=== PATIENT | male | born 1965 | race Caucasian/White ===

== ENCOUNTER 2023-06-26 22:48 | Observation (INO) ==
[2023-06-26 23:39] LABS: Albumin Globulin Ratio 1.9 (0.9-2); Albumin Level 4.5 gm/dl (3.4-5.0); Basophils # (auto) 0.07 K/uL (0.00-0.20); Calcium 9.2 mg/dl (8.6-10.3); Creatinine Clr Calc Pharmacy 113.9 ml/min; Eosinophils # (auto) 0.18 K/uL (0.00-0.50); Eosinophils % (auto) 2.7 %; Est GFR (African American) 97.1 ml/min; Est GFR (Non-African American) 83.8 ml/min; Globulin 2.4 gm/dl (2.5-4.0); Hematocrit (blood only) 43.6 % (42.0-52.0); Hemoglobin 15.3 g/dl (14.0-18.0); Immature Granulocytes # (auto) 0.02 K/uL (0.01-0.20); Immature Granulocytes % (auto) 0.3 %; Lymphocytes # (auto) 3.32 K/uL (1.20-3.40); Lymphocytes % (auto) 49.4 %; Magnesium 2.1 mg/dl (1.7-2.4); Mean Corpuscular Hemoglobin 29.8 pg (25.0-34.0); Mean Corpuscular Hgb Conc 35.1 g/dL (32.0-36.0); Mean Corpuscular Volume 84.8 fL (80.0-100.0); Mean Platelet Volume 10.2 fL (9.4-12.4); Monocytes # (auto) 0.44 K/uL (0.11-0.59); Monocytes % (auto) 6.5 %; Neutrophils # (auto) 2.69 K/uL (1.40-6.50); Neutrophils % (auto) 40.1 %; Platelet Count 230 K/uL (130-400); Potassium 3.6 mmol/L (3.5-5.1); RDW Standard Deviation 39.6 fL (36.4-46.3); Red Blood Count 5.14 M/uL (4.70-6.10); Total Protein 6.9 gm/dl (6.0-8.3); White Blood Count 6.72 K/ul (4.8-10.8)
[2023-06-26 23:46] LABS: Troponin I High Sensitivity 15.2 pg/ml (0-20)
[2023-06-26 23:46] LABS: iSTAT Hemoglobin 14.3 g/dl (14.0-18.0); iSTAT Ionized Calcium 1.17 mmol/l (1.12-1.32); iSTAT Potassium 3.4 mmol/L (3.3-5.0)
[2023-06-27] MEDS: OPTIRAY 350 500ml IV ONE (00:07)
--- NOTE | 2023-06-27 00:24 | Emergency Department Note ---
History of Present Illness General Chief complaint: Cardiac Assessment Stated complaint: CHEST PRESSURE Time Seen by Provider: 06/26/23 23:04 History of Present Illness This 57-year-old gentleman presents ER complaining of chest pain that goes up his chest for the past day. Nothing makes it better or worse. Patient states has been having constant chest discomfort and occasionally his heart will pauses and/or skip and feels like it goes up to the base of his neck today. He saw the family doctor today and an outpatient Holter monitor was ordered. He had a thyroid test done but no other blood work was done. No prior heart disease. He does not smoke. No leg pain or swelling. Patient denies exertional pain, trauma to the area, abdominal pain, flulike illness. He states he did raking the other day with no difficulties. No diaphoresis or nausea with the symptoms. Home Medications Medication Instructions Recorded Confirmed Type Pituitary Gland Support 1 tab PO DAILY 06/27/23 06/27/23 History Thyrotropin Support 2 tab PO DAILY 06/27/23 06/27/23 History cholecalciferol (vitamin D3) 50 100 mcg PO DAILY 06/27/23 06/27/23 History mcg (2,000 unit) capsule (Vitamin D3) Allergies Allergy/AdvReac Type Severity Reaction Status Date / Time Sulfa (Sulfonamide Allergy Unknown HAPPENED Verified 06/27/23 00:18 Antibiotics) A CHILD omeprazole AdvReac Intermediate HANDS Verified 06/27/23 00:18 SWELLED Past Med/Surg History Medical History History of COVID-19 x2, most recent 2021, home test, not hosp; mild cold symptoms>no residual symptoms Vitamin D insufficiency History of gastric ulcer Acid reflux diet controlled Hyperlipidemia no meds Hypertension hx Hypothyroidism Surgical History Hx of colonoscopy History of tonsillectomy 1968 History of hernia repair RIGHT INGUINAL HERNIA, 1991 History of cholecystectomy (2006) 2006 Family History Mother Diabetes Hypertension Father Diabetes Hypertension Skin cancer Denies family history of Ovarian cancer Prostate cancer Myocardial infarction Breast cancer Colorectal cancer Social History Smoking Status: Never smoker Second Hand Exposure: No; Do You Dip or Chew Tobacco: No; Hx Alcohol Use: Yes Alcohol Intake Frequency: Monthly or Less Hx Substance Use: No Preferred Language: Bulgarian Communication Ability: Effective Visual Impairment: No Limitations Hearing Ability: Normal Sandal Parts Assembler Required: No Beliefs That Will Affect Care: None marital status: marital status details: prev divorce Current Living Situation: Spouse and Family current occupational status: employed 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 How many Children do You have: 2 Feels Safe at Home: Yes Childhood Exposure to Second-Hand Smoke: No Diet: regular caffeine: Yes (Coffee x 2 per day) during the past year weight has: remained stable Dental Care, Regularly: Yes Physical Activity Frequency: Daily Physical Activity Frequency Comment: very active lifestyle Seatbelt Use: always Sunscreen Use: No Assistive Devices: Contacts and Glasses Review of Systems A total of 10 systems reviewed and were otherwise negative Physical Exam Vital Signs Vital Signs - 24 hr 06/26/23 22:50 06/26/23 23:06 06/26/23 23:06 Temperature 36.1 C L Temperature Source Temporal Artery Scan Pulse Rate 59 L 56 L Pulse Rate [Radial] 58 L Respiratory Rate 17 14 Respiratory Effort / Characteristics Non-Labored Spontaneous Respiratory Depth Normal Respiratory Pattern Regular Blood Pressure 211/118 H Blood Pressure [Left Arm] 190/93 H Blood Pressure Mean 149 Blood Pressure Mean [Left Arm] 125 Pulse Oximetry 96 96 Oxygen Delivery Method Room Air Room Air Sepsis Recent Fever Within 48 Hours No Sepsis New/Unexplained Change in Mental Status No Sepsis Action Taken by Nursing No Action Required 06/26/23 23:31 06/27/23 01:00 Temperature Temperature Source Pulse Rate Pulse Rate [Radial] 55 L Respiratory Rate 17 Respiratory Effort / Characteristics Non-Labored Respiratory Depth Normal Respiratory Pattern Regular Blood Pressure Blood Pressure [Left Arm] 159/100 H Blood Pressure Mean Blood Pressure Mean [Left Arm] 119 Pulse Oximetry 98 97 Oxygen Delivery Method Room Air Room Air Sepsis Recent Fever Within 48 Hours Sepsis New/Unexplained Change in Mental Status Sepsis Action Taken by Nursing VITALS: Vitals are noted on the nurse's note and reviewed by myself. Vital signs stable. GENERAL: Pleasant patient with present, in no acute distress, nondiaphoretic, well-developed well-nourished. SKIN: Capillary reflex less than 2 seconds. HEENT: Normocephalic. PERRLA. EOMI. Nares patent. Mucous membranes moist. Neck is supple without nuchal rigidity. HEART: Regular rate and rhythm LUNGS: Clear to auscultation bilaterally without wheezes, rales or rhonchi. No retractions or accessory muscle use. ABDOMEN: Positive bowel sounds x 4. Normal tympanic percussion. Soft, nontender, without masses or organomegaly. Mccloud sign negative. No guarding or rebound tenderness. no CVA tenderness MUSCULOSKELETAL: No gross musculoskeletal defects. NEURO: Patient was alert and oriented to person place and time. No focal neurological deficits. Course Administered Medications Discontinued Medications Sodium Chloride (Nss) 1,000 mls @ 999 mls/hr IV .Q1H1M ONE Stop: 06/27/23 01:24 Last Admin: 06/27/23 00:43 Dose: 999 mls/hr Documented By: DANILO Ioversol (Optiray 350 500ml) 125 ml IV ONCE ONE Stop: 06/27/23 00:07 Last Admin: 06/27/23 00:07 Dose: 116 ml Documented By: CHERIE Medical Decision Making Medical Records Attestation: I reviewed the patient's medical records. Home Medications Current Medication List: was personally reviewed by me Laboratory Data Attestation: I reviewed the patient's lab results. 06/26/23 22:58 06/26/23 22:58 Lab Results 06/26/23 06/26/23 06/27/23 Range/Units 22:58 23:26 00:34 WBC 6.72 (4.8-10.8) K/ul RBC 5.14 (4.70-6.10) M/uL Hgb 15.3 (14.0-18.0) g/dl POC Hgb 14.3 (14.0-18.0) g/dl Hct 43.6 (42.0-52.0) % POC Hct 42 (42-52) % MCV 84.8 (80.0-100.0) fL MCH 29.8 (25.0-34.0) pg MCHC 35.1 (32.0-36.0) g/dL RDW Std Deviation 39.6 (36.4-46.3) fL RDW Coeff of Syed 13.0 (11.5-14.5) % Plt Count 230 (130-400) K/uL MPV 10.2 (9.4-12.4) fL Immature Gran % (Auto) 0.3 % Neut % (Auto) 40.1 % Lymph % (Auto) 49.4 % Bartholomew % (Auto) 6.5 % Eos % (Auto) 2.7 % Baso % (Auto) 1.0 % Neut # (Auto) 2.69 (1.40-6.50) K/uL Lymph # (Auto) 3.32 (1.20-3.40) K/uL Bartholomew # (Auto) 0.44 (0.11-0.59) K/uL Eos # (Auto) 0.18 (0.00-0.50) K/uL Baso # (Auto) 0.07 (0.00-0.20) K/uL Immature Gran # (Auto) 0.02 (0.01-0.20) K/uL POC Sodium 142 (135-144) mmol/L Sodium 139 (136-145) mmol/L POC Potassium 3.4 (3.3-5.0) mmol/L Potassium 3.6 (3.5-5.1) mmol/L POC Chloride 104 (101-112) mmol/L Chloride 106 (98-107) mmol/L Carbon Dioxide 29 (21-32) mmol/L POC Total CO2 30 (24-31) mmol/L Anion Gap 4 (3-11) POC Anion Gap 12.0 L (16-25) mmol/L POC BUN 24 H (7-18) mg/dl BUN 24 H (6-23) mg/dl Creatinine 1.00 (0.6-1.4) mg/dl POC Creatinine 1.0 (0.6-1.3) mg/dl Est Cr Clr Drug Dosing 113.9 ml/min Est GFR ( Amer) 97.1 ml/min Est GFR (Non-Af Amer) 83.8 ml/min BUN/Creatinine Ratio 24.0 H (10-20) Glucose 132 H (70-99(Fasting)) mg/dl POC Glucose (other) 126 H (70-99) mg/dl Calcium 9.2 (8.6-10.3) mg/dl POC Ioniz Calcium Chela 1.17 (1.12-1.32) mmol/l Magnesium 2.1 (1.7-2.4) mg/dl Total Bilirubin 1.0 (0.2-1.0) mg/dl AST 16 (13-39) U/L ALT 15 (7-52) U/L Alkaline Phosphatase 49 (34-104) U/L Total Creatine Kinase 201 (30-223) U/L Troponin I High Sens 15.2 19.0 (0-20) pg/ml Total Protein 6.9 (6.0-8.3) gm/dl Albumin 4.5 (3.4-5.0) gm/dl Globulin 2.4 L (2.5-4.0) gm/dl Albumin/Globulin Ratio 1.9 (0.9-2) Lipase 31 (11-82) U/L Imaging Data Attestation: I personally reviewed and interpreted this imaging study as follows: Radiologist's Impression: Chest CTA 06/26/23 23:17 Exam(s): CTA CHEST IV Amt: 116 ML OPTIRAY 320 EXAM: CT Angiography Chest With Intravenous Contrast CLINICAL HISTORY: Reason for exam: PE. TECHNIQUE: Axial computed tomographic angiography images of the chest with intravenous contrast. CTDI is 49.51 mGy and DLP is 873.02 mGy-cm. Automated exposure control was utilized for the study. A dose lowering technique was utilized adhering to the principles of ALARA. MIP reconstructed images were created and reviewed. COMPARISON: No relevant prior studies available. FINDINGS: Pulmonary arteries: Adequate pulmonary artery opacification. Normal caliber main pulmonary artery. No pulmonary embolism. Aorta: No acute findings. No aortic aneurysm or dissection. Lungs: Unremarkable. No mass. No consolidation. Pleural space: Unremarkable. No pleural effusion or pneumothorax. Heart: Cardiomegaly. No RV strain. Minor coronary artery atherosclerosis. No pericardial effusion. Thyroid: Unremarkable thyroid gland. Bones/joints: No acute fracture. No dislocation. Soft tissues: Unremarkable. Lymph nodes: Unremarkable. No adenopathy. Gallbladder and bile ducts: Cholecystectomy. IMPRESSION: No evidence of acute pulmonary embolism. Electronically signed by: Tl Devlin M.D. 06/27/23 00:27 AM MDM Narrative Prior records/ancillary studies reviewed. Triage Nursing notes reviewed. Additional history obtained from family. The patient's history was concerning for chest pain. Differential diagnosis: Etiologies such as cardiac ischemia, aortic dissection, pulmonary embolism, pneumonia, pneumothorax, musculoskeletal, infections, pericarditis, myocarditis, esophageal rupture, gastrointestinal, as well as others were entertained. Physical examination: As above. ER treatment provided: An order was placed for continuous cardiac monitoring. The monitor shows a rate of 50-100 with a sinus rhythm per my interpretation. Patient declined medication On reassessment the patient felt better. Diagnostic interpretation by me: The electrocardiogram was negative for pathologic change. Ordered for chest pain EKG: Normal sinus, normal intervals, no acute ST-T wave changes, rate of 57. Impression sinus bradycardia independently interpreted by myself I think arrhythmia is unlikely. EKG shows normal sinus rhythm with no interval abnormalities such as QT prolongation or WPW. There are no findings to suggest Brugada syndrome. Cardiac monitoring in the emergency department reveals no tachycardic or bradycardic dysrhythmia. Hypertrophic cardiomyopathy was considered but there are no clear historical elements pointing toward this. EKG is not suggestive. The QRS voltage is not extremely large and there are no suggestive Q waves. The labs Independently Interpreted by myself revealed first troponin negative and second troponin is negative but slightly higher, mild hyperglycemia without DKA Imaging studies: Chest x-ray with no acute consolidation, pneumothorax or free air per my independent interpretation CTA as above HEART SCORE: Hx: high/mod/low suspicion: 1 ECG: ST depression/nonspecific changes/normal: 0 Age: Greater than 65/45-64/less than 45: 1 Risk factors: (Hypertension, hyperlipidemia, diabetes, coronary disease, tobacco use, cocaine use): 1 Troponin: Greater than 2 times normal limits/1-2 times normal limits/normal: 0 Total: 3 Consultation: A consultation was placed with the hospitalist. The case was discussed and diagnostics were reviewed. The patient was evaluated in the ER for further treatment. Exam and history seem consistent with chest pain with respecters for heart disease. Medicine was consulted and recommends adding on thyroid test. This was added. Patient will be mated to the medical service. Patient is agreeable. EKG is nonischemic. 2 negative troponins. Outpatient euthyroid. T3-T4 were added per admitting team's request. Patient remained stable and was admitted to the medical service. By the evaluation outlined above emergent etiologies such as aortic dissection, pulmonary embolism, pneumonia, pneumothorax, infections, pericarditis, myocarditis, gastrointestinal, as well as others were deemed relatively unlikely. The pt informed about the findings as listed above. All questions were answered and pleased with the treatment. The chart was completed utilizing eduPad Speech voice recognition software. Grammatical errors, random word insertions, pronoun errors, and incomplete sentences are an occassional consequence of this system due to software limitations, ambient noise, and hardware issues. Any formal questions or concerns about the content, text, or information contained within the body of this dictation should be directly addressed to the physician assistant department manager for clarification. Impression & Plan Chest pain Discharge Plan Visit Data Chief Complaint: Cardiac Assessment Stated Complaint: CHEST PRESSURE ED Provider: Barb Cole ED Midlevel Provider: Alea Valadez Discharge Problem: Chest pain Patient Disposition: Being Evaluated by Hospitalist Condition: Good Forms Stand Alone Forms: [facility] Handle Prescriptions Prescriptions: No Action cholecalciferol (vitamin D3) [Vitamin D3] 50 mcg (2,000 unit) Capsule 100 mcg PO DAILY Pituitary Gland Support 1 tab PO DAILY Thyrotropin Support 2 tab PO DAILY Referrals Referrals: Deloris Alford DO [Primary Care Provider] - Discharge Problem: Chest pain Qualifiers: Chest pain type: unspecified Qualified Code(s): R07.9 - Chest pain, unspecified
--- NOTE | 2023-06-27 00:28 | CT Scan Report ---
Exam(s): CTA CHEST IV Amt: 116 ML OPTIRAY 320 EXAM: CT Angiography Chest With Intravenous Contrast CLINICAL HISTORY: Reason for exam: PE. TECHNIQUE: Axial computed tomographic angiography images of the chest with intravenous contrast. CTDI is 49.51 mGy and DLP is 873.02 mGy-cm. Automated exposure control was utilized for the study. A dose lowering technique was utilized adhering to the principles of ALARA. MIP reconstructed images were created and reviewed. COMPARISON: No relevant prior studies available. FINDINGS: Pulmonary arteries: Adequate pulmonary artery opacification. Normal caliber main pulmonary artery. No pulmonary embolism. Aorta: No acute findings. No aortic aneurysm or dissection. Lungs: Unremarkable. No mass. No consolidation. Pleural space: Unremarkable. No pleural effusion or pneumothorax. Heart: Cardiomegaly. No RV strain. Minor coronary artery atherosclerosis. No pericardial effusion. Thyroid: Unremarkable thyroid gland. Bones/joints: No acute fracture. No dislocation. Soft tissues: Unremarkable. Lymph nodes: Unremarkable. No adenopathy. Gallbladder and bile ducts: Cholecystectomy. IMPRESSION: No evidence of acute pulmonary embolism. Electronically signed by: Tl Devlin M.D. 06/27/23 00:27 AM
[2023-06-27] MEDS: SODIUM CHLORIDE 0.9% 1,000 ML IV ONE (00:43)
--- NOTE | 2023-06-27 01:45 | History & Physical Report ---
Date of Service June 27, 2023 Assessment & Plan (1) Chest pressure: Plan: Intermittent chest pressure. Trops negative x2. CXR without signs of dissection though image not ideal for assessing the mediastinum. CTA without signs of pulmonary embolism. EKG per my read - sinus bradycardia, poor R wave progression, no ischemic changes. Is having palpitations/skipped beats. Event monitor ordered outpatient. Ideally would organize placement of this prior to discharge or right after discharge with [facility] cardiology. Will also trial voltaren gel QID as there may be a MSK component. ECHO monitor on tele cards consult - appreciate recs K > 4, Mg > 2 Event monitor outpatient (2) Palpitations: Plan: see chest pressure (3) Hypothyroidism: Plan: Was previously on levothyroxine. Self stopped. Managing thyroid with supplementation. Would discourage non-FDA approved supplements for management of hormone conditions as they can lead to disruption of the hypothalamic-pituitary axis. TSH 3.9. T3/T4 AM cortisol (4) Hypertension: Plan: Self stopped lisinopril. BP has been elevated on an outpatient basis. ASCVD 13.2% calculated using previous lipid panel. Reordered lipids/HbA1c. Patient would likely benefit from antihypertensive therapy. (5) Hyperlipidemia: Plan: Lipids from 12/2022 with LDL 122, HDL 32, TChol 207, TRGs 263. Not on statin therapy. Stopped medication after losing weight. ASCVD 13.2% calculated using previous lipid panel. Reordered lipids/HbA1c. Patient would likely benefit from statin therapy. (6) Acid reflux: Plan: Managed with diet. PRN Maalox ordered. (7) Impaired fasting glucose: Plan: HbA1c 5.5 in 12/2022. Will recheck as patient with dyslipidemia, elevated BPs, and elevated ASCVD. HbA1c ordered Plan Code status: full DVT ppx: low risk, ambulation FENGI: low salt Dispo: MedSur Tele History of Present Illness Chief Complaint: heart palpitations, chest pressure Primary Care Provider: Deloris Alford DO 57 y/o male with a PMHx of hypothyroidism presents with intermittent chest pressure and palpitations/skipped beats. Patient was seen by PCP 06/25 for the same symptoms. TSH, CBC, CMP, Mg, and Holter monitor were ordered at that time. Labs largely unremarkable. Trops negative x2. EKG without signs of ischemia. CXR without signs of dissection. requesting ECHO and cardiology consult. Patient does carry a diagnosis of hypothyroidism. He is not on levothyroxine anymore and manages with lifestyle modifications and supplements. TSH 3.954. T3/T4 and AM cortisol ordered. Upon my interview patient asymptomatic. Has reported a few skipped beats. Intermittent chest pressure described as "a weighted blanket". Palpitations described as "when a muscle is tight right before it gives and loosens". Patient overall well - no fevers, chills, SOB, nausea, vomiting, diarrhea, constipation, urinary symptoms, hematuria, hematochezia, lightheadedness, or dizziness. Allergies Allergy/AdvReac Type Severity Reaction Status Date / Time Sulfa (Sulfonamide Allergy Unknown HAPPENED Verified 06/27/23 00:18 Antibiotics) A CHILD omeprazole AdvReac Intermediate HANDS Verified 06/27/23 00:18 SWELLED Home Medications Medication Instructions Recorded Confirmed Type Pituitary Gland Support 1 tab PO DAILY 06/27/23 06/27/23 History Thyrotropin Support 2 tab PO DAILY 06/27/23 06/27/23 History cholecalciferol (vitamin D3) 50 100 mcg PO DAILY 06/27/23 06/27/23 History mcg (2,000 unit) capsule (Vitamin D3) Past Med/Surg History Medical History History of COVID-19 x2, most recent 2021, home test, not hosp; mild cold symptoms>no residual symptoms Vitamin D insufficiency History of gastric ulcer Acid reflux diet controlled Hyperlipidemia no meds Hypertension hx Hypothyroidism Surgical History Hx of colonoscopy History of tonsillectomy 1968 History of hernia repair RIGHT INGUINAL HERNIA, 1992 History of cholecystectomy (2006) 2006 Family History Mother Diabetes Hypertension Father Diabetes Hypertension Skin cancer Denies family history of Ovarian cancer Prostate cancer Myocardial infarction Breast cancer Colorectal cancer Social History Smoking Status: Never smoker Second Hand Exposure: No; Do You Dip or Chew Tobacco: No; Hx Alcohol Use: Yes Alcohol Intake Frequency: Monthly or Less Hx Substance Use: No Preferred Language: Vietnamese Communication Ability: Effective Visual Impairment: No Limitations Hearing Ability: Normal Patient Appointment Coordinator Required: No Beliefs That Will Affect Care: None marital status: marital status details: prev divorce Current Living Situation: Spouse and Family current occupational status: employed 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[address];ALSO EMT LOCALLY How many Children do You have: 2 Feels Safe at Home: Yes Childhood Exposure to Second-Hand Smoke: No Diet: regular caffeine: Yes (Coffee x 2 per day) during the past year weight has: remained stable Dental Care, Regularly: Yes Physical Activity Frequency: Daily Physical Activity Frequency Comment: very active lifestyle Seatbelt Use: always Sunscreen Use: No Assistive Devices: Contacts and Glasses Review of Systems 2 Review of Systems: See HPI Physical Exam 2 Physical Exam: Gen: well appearing male patient in NAD HEENT: AT NC MMM Resp: CTAB no wheezing no increased work of breathing CV: bradycardic regular rhythm, no m/r/g 2+ peripheral pulses clinically well perfused Abd: non-distended MSK: no obvious deformities Skin: no rashes or bruising Neuro: alert and oriented Psych: appropriate mood and affect Results & Data Results & Data Vital Signs (Past 12 Hours) Vital Signs Temp Pulse Pulse Resp BP BP Pulse Ox 06/27/23 01:00 55 L 17 159/100 H 97 06/26/23 23:31 98 06/26/23 23:06 56 L 06/26/23 23:06 58 L 14 190/93 H 96 06/26/23 22:50 36.1 C L 59 L 17 211/118 H 96 O2 Del Method 06/27/23 01:00 Room Air 06/26/23 23:31 Room Air 06/26/23 23:06 06/26/23 23:06 Room Air 06/26/23 22:50 Room Air Laboratory Results 06/26/23 22:58 06/26/23 22:58 Diagnostic Findings Chest CTA 06/26/23 23:17 FINDINGS: Pulmonary arteries: Adequate pulmonary artery opacification. Normal caliber main pulmonary artery. No pulmonary embolism. Aorta: No acute findings. No aortic aneurysm or dissection. Lungs: Unremarkable. No mass. No consolidation. Pleural space: Unremarkable. No pleural effusion or pneumothorax. Heart: Cardiomegaly. No RV strain. Minor coronary artery atherosclerosis. No pericardial effusion. Thyroid: Unremarkable thyroid gland. Bones/joints: No acute fracture. No dislocation. Soft tissues: Unremarkable. Lymph nodes: Unremarkable. No adenopathy. Gallbladder and bile ducts: Cholecystectomy. IMPRESSION: No evidence of acute pulmonary embolism. Supervising Physician Co-Signing Physician Notes Attending addendum: I have physically seen this patient, have supervised the medical residents activities, and agree with the H&P unless as otherwise noted. Assessment and Plan: Chest pressure/palpitations/volatile blood pressure/bradycardia- The patient will be admitted to telemetry for serial cardiac enzymes, serial EKG's, cardiac rhythm monitoring and a 2-D echocardiogram with Dopplers. Patient's heart rate has been running in the upper 40s to mid 50s while in the emergency department Blood pressure has been volatile, ranging from 144/85-193/[address] on hydralazine 10 mg IV every 4 hours as needed for systolic blood pressure greater than 160 He has been on lisinopril at some point in the outpatient setting Initial troponin 15.2, with follow-up 19 Patient did receive 1 L normal saline from the ED He reports his blood pressure improved and his weight is wonderful, but his weight has been up more recently, and his blood pressure has as well. Potassium 3.6, and will be given Klor-Con 40 mEq p.o. x 1, with target potassium 4 Magnesium level 2.1, with target 2 Once blood pressure is controlled and stable, should he have a stress echocardiogram There had been plans in the outpatient setting for possible heart monitor Consult cardiology Nutraceuticals use- Patient takes pituitary gland support and thyrotropin support. He reportedly has been on levothyroxine at some point in the past Check a TSH, free T4 and free T3 Check a morning cortisol Resident Activity Tracking Resident Involvement: Resident Care Provided Care Provided: Adult [facility] Medicine
[2023-06-27 02:11] LABS: T4 Free Thyroxine 0.7 ng/dl (0.61-1.60)
[2023-06-27] MEDS: POTASSIUM CHLORIDE CRTAB 20 MEQ TABCR PO STA (03:10)
[2023-06-27] MEDS ORDERED: ALUMINUM/MAGNESIUM SUSP 30 ML UDC PO PRN (04:45)
[2023-06-27] MEDS ORDERED: POLYETHYLENE (MIRALAX) 17 GM PACK PO PRN (04:45)
[2023-06-27] MEDS ORDERED: ACETAMINOPHEN 325 MG TAB PO PRN (04:45)
[2023-06-27] MEDS ORDERED: hydrALAZINE HCL 20 MG/ML VIAL IV PRN (05:30)
--- NOTE | 2023-06-27 05:39 | Billing Data ---
Date of Service June 27, 2023 Coding Level of Care Code 12967 INT INP/OBS CARE
--- NOTE | 2023-06-27 06:56 | XRay Report ---
SINGLE VIEW CHEST CLINICAL HISTORY: Atypical chest pain FINDINGS: 2 AP, portable, upright chest radiographs are correlated with chest CT dated 11/08/2019. The heart is mildly enlarged. The pulmonary vasculature is noncongested. The lungs and pleural spaces are clear. No pneumothorax is seen. The bony thorax is grossly intact. IMPRESSION: No active disease in the chest. ACT 112: Negative or not required by law. Electronically signed by: Marcus Lr M.D. 06/27/2023 6:55 AM
--- NOTE | 2023-06-27 07:42 | Communication Note ---
Date of Service: June 27, 2023 Chest pressure/palpitations/volatile blood pressure/bradycardia- The patient will be admitted to telemetry for serial cardiac enzymes, serial EKG's, cardiac rhythm monitoring and a 2-D echocardiogram Patient's heart rate has been running in the upper 40s to mid 50s while in the emergency department Blood pressure has been volatile, ranging from 144/85-193/105 Place on hydralazine 10 mg IV every 4 hours as needed for systolic blood pressure greater than 160 He has been on lisinopril at some point in the outpatient setting Initial troponin 15.2, with follow-up 19 Patient did receive 1 L normal saline from the ED He reports his blood pressure improved and his weight is wonderful, but his weight has been up more recently, and his blood pressure has as well. Potassium 3.6, and will be given Klor-Con 40 mEq p.o. x 1, with target potassium 4 Magnesium level 2.1, with target 2 Once blood pressure is controlled and stable, should he have a stress echocardiogram There had been plans in the outpatient setting for possible heart monitor Consult cardiology Nutraceuticals use- Patient takes pituitary gland support and thyrotropin support. He reportedly has been on levothyroxine at some point in the past Check a TSH, free T4 and free T3 Check a morning cortisol
[2023-06-27 07:54] LABS: Estimated Average Glucose 120 mg/dl; Hemoglobin A1C 5.8 % (4.5-5.6)
[2023-06-27 07:58] LABS: Chol HDL Ratio 5.4 (0-5)
[2023-06-27] MEDS: DICLOFENAC SOD 1% GEL 100 GM TUBE EXT SCH (08:27)
--- NOTE | 2023-06-27 09:40 | Electrocardiogram Report ---
Test Reason : Blood Pressure : / mmHG Vent. Rate : 057 BPM Atrial Rate : 057 BPM P-R Int : 170 ms QRS Dur : 108 ms QT Int : 416 ms P-R-T Axes : 012 -17 068 degrees QTc Int : 404 ms Sinus bradycardia Nonspecific ST abnormality When compared with ECG of 08-NOV-2019 22:11, Nonspecific T wave abnormality, worse in Inferior leads Nonspecific T wave abnormality now evident in Lateral leads Confirmed by Perry Casas ([id number]) on 06/27/2023 9:40:05 AM Referred By: REFERRED SELF Confirmed By:Kb Casas
--- NOTE | 2023-06-27 09:42 | Electrocardiogram Report ---
Test Reason : Blood Pressure : / mmHG Vent. Rate : 048 BPM Atrial Rate : 048 BPM P-R Int : 182 ms QRS Dur : 108 ms QT Int : 436 ms P-R-T Axes : 027 015 072 degrees QTc Int : 389 ms Sinus bradycardia When compared with ECG of 26-JUN-2023 22:57, Nonspecific T wave abnormality no longer evident in Inferior leads Confirmed by Perry Casas ([id number]) on 06/27/2023 9:42:35 AM Referred By: REFERRED SELF Confirmed By:Kb Casas
--- NOTE | 2023-06-27 10:07 | XCELERA ---
[id number]
--- NOTE | 2023-06-27 16:05 | Cardiology Consultation ---
Date of Consultation June 27, 2023 Assessment & Plan (1) Chest pressure: (2) Hypertension: (3) Palpitations: Plan 1. Chest pressure: This was an atypical symptom in a sense that it occurred at rest, was fairly prolonged in nature but did not result in any elevation of his cardiac biomarkers. Think we can not definitively say that this is not related to cardiac ischemia or coronary artery disease. He is also known to have a good exercise tolerance and did not have exertional symptoms. As such, I do not believe he requires any provocative testing such as exercise treadmill testing. 2. Palpitations: Most closely associated with PVCs. However, he likely has some PVCs without symptoms. Unclear correlation overall. However, symptoms did appear to improve after electrolyte replenishment. Did discuss options for evaluation such as outpatient monitoring to quantif PVCs and perhaps allow for a better correlation. We also discussed options for medical therapy should this become quite bothersome. However, I do not believe this represents a concerning problem in the setting of normal LV systolic function. No evidence of coronary disease. After discussion with the patient and his we have elected to simply pursue some electrolyte supplementation on outpatient basis and monitor symptoms. 3. Hypertension: His blood pressure is certainly been elevated here in the hospital. In the past he apparently was on lisinopril. It is likely he would benefit from some antihypertensive therapy. Avoidance of beta-blockers and other rate slowing agents such as diltiazem or verapamil is necessary. However, ARB or amlodipine would seem like reasonable choices. 4. Right ventricular enlargement: Likely artifactual. No elevated pressures on echocardiography. No evidence of right heart failure. No symptoms consistent with pulmonary disease or obstructive sleep apnea. History of Present Illness Reason for Consultation: Chest pressure, palpitations Requesting Physician: Brandi Attending Physician: Wilma Ariza MD History of Present Illness The patient is a 57-year-old gentleman without a known history of cardiac disease who presents to the hospital for symptoms chest pressure and palpitations. Patient states that for few days has been noticing some very fleeting palpitations in the precordium. Often times these involve the left upper chest. They appear to be random and not associated with any specific activity or change in position. Often times they are associated with a sense of heaviness in left upper chest. He presented to his primary care physician's office for these symptoms. An outpatient evaluation was planned but after the visit the patient began to have more symptoms and also noticed a heaviness in the left upper chest. This was fairly persistent nature and prompted a visit to the emergency room. The symptoms lasted a few hours and seemed to resolve with replenishment of potassium. Patient states that today he has a very mild sensation in that location but much improved from yesterday. He has noticed some brief and fleeting palpitations over the course of the evening but they appeared to have lessened in frequency and intensity. In general he is a very active individual who was able to perform strenuous activity on his large property. This involves raking and moving hay. He can perform strenuous activity of this nature without limiting symptoms. No limiting dyspnea. No exertional chest pain. These activities do not appear to worsen any palpitations. He also denied frequent dizziness or lightheadedness. No history of syncope. No lower extremity edema. Allergies Allergy/AdvReac Type Severity Reaction Status Date / Time Sulfa (Sulfonamide Allergy Unknown HAPPENED Verified 06/27/23 00:18 Antibiotics) A CHILD omeprazole AdvReac Intermediate HANDS Verified 06/27/23 00:18 SWELLED Home Medications Medication Instructions Recorded Confirmed Type Pituitary Gland Support 1 tab PO DAILY 06/27/23 06/27/23 History Thyrotropin Support 2 tab PO DAILY 06/27/23 06/27/23 History cholecalciferol (vitamin D3) 50 100 mcg PO DAILY 06/27/23 06/27/23 History mcg (2,000 unit) capsule (Vitamin D3) lisinopril 10 mg tablet 10 mg PO DAILY #30 tabs 06/27/23 Rx Patient History Medical History History of COVID-19 x2, most recent 2021, home test, not hosp; mild cold symptoms>no residual symptoms Vitamin D insufficiency History of gastric ulcer Acid reflux diet controlled Hyperlipidemia no meds Hypertension hx Hypothyroidism Surgical History Hx of colonoscopy History of tonsillectomy 1968 History of hernia repair RIGHT INGUINAL HERNIA, 1991 History of cholecystectomy (2006) 2006 Family History Mother Diabetes Hypertension Father Diabetes Hypertension Skin cancer Denies family history of Ovarian cancer Prostate cancer Myocardial infarction Breast cancer Colorectal cancer Social History Smoking Status: Never smoker Second Hand Exposure: No; Do You Dip or Chew Tobacco: No; Hx Alcohol Use: Yes Alcohol Intake Frequency: Monthly or Less Hx Substance Use: No Preferred Language: Indian Communication Ability: Effective Visual Impairment: No Limitations Hearing Ability: Normal Professor Of Anthropology Required: No Beliefs That Will Affect Care: None marital status: marital status details: prev divorce Current Living Situation: Spouse current occupational status: employed 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 Previously he had an element of fatigue that appears to have resolved after discontinuing thyroid supplementation. According to his he actually sleeps quite well. He does not appear to snore at nighttime. The patient states he wakes up occasionally to urinate but not for breathing trouble. Physical Exam Physical Exam: The patient is alert and oriented. Mood and affect appeared normal. He answered all questions appropriately. HEENT: Pupils are equal and reactive to light and accommodation. Extraocular movements are intact. The sclerae are anicteric. Neuro: Cranial nerves intact Neck: Patient's neck is supple. He has palpable carotid pulses bilaterally without bruits on auscultation. There is no evidence of jugular venous distention. The thyroid is not enlarged. Lungs: Clear to auscultation bilaterally. He has good air movement without use of accessory muscles. No rales wheezes or rhonchi. Cardiac: Heart demonstrates a regular rate and rhythm. Normal S1 and S2. No murmurs on examination. Pulses: The patient has palpable radial pulses bilaterally that are equal in intensity Extremities: There was no evidence of hypoperfusion. There is no cyanosis or clubbing. There is no edema. Skin: I did not appreciate any rashes on examination today. Results & Data Vital Signs (Past 12 Hours) Vital Signs Temp Pulse Pulse Resp BP BP Pulse Ox 06/27/23 15:46 36.6 C 53 L 17 176/114 H 146/90 H 95 06/27/23 11:54 36.6 C 53 L 17 146/90 H 95 06/27/23 08:09 36.4 C L 51 L 18 131/81 96 06/27/23 07:35 52 L 06/27/23 06:35 48 L 18 145/83 H 98 06/27/23 04:45 176/114 H 193/105 H 06/27/23 04:38 56 L 06/27/23 04:30 36.4 C L 55 L 18 176/105 H 96 O2 Del Method 06/27/23 15:46 06/27/23 11:54 Room Air 06/27/23 08:09 Room Air 06/27/23 07:35 06/27/23 06:35 Room Air 06/27/23 04:45 06/27/23 04:38 06/27/23 04:30 Room Air Laboratory Results Abnormal Lab Results 06/26/23 06/26/23 06/27/23 22:58 23:26 00:34 WBC 6.72 RBC 5.14 Hgb 15.3 POC Hgb 14.3 Hct 43.6 POC Hct 42 MCV 84.8 MCH 29.8 MCHC 35.1 RDW Std Deviation 39.6 RDW Coeff of Syed 13.0 Plt Count 230 MPV 10.2 Immature Gran % (Auto) 0.3 Neut % (Auto) 40.1 Lymph % (Auto) 49.4 Dixie % (Auto) 6.5 Eos % (Auto) 2.7 Baso % (Auto) 1.0 Neut # (Auto) 2.69 Lymph # (Auto) 3.32 Dixie # (Auto) 0.44 Eos # (Auto) 0.18 Baso # (Auto) 0.07 Immature Gran # (Auto) 0.02 POC Sodium 142 Sodium 139 POC Potassium 3.4 Potassium 3.6 POC Chloride 104 Chloride 106 Carbon Dioxide 29 POC Total CO2 30 Anion Gap 4 POC Anion Gap 12.0 L POC BUN 24 H BUN 24 H Creatinine 1.00 POC Creatinine 1.0 Est Cr Clr Drug Dosing 113.9 Est GFR ( Amer) 97.1 Est GFR (Non-Af Amer) 83.8 BUN/Creatinine Ratio 24.0 H Glucose 132 H POC Glucose (other) 126 H Estimat Average Glucose Hemoglobin A1c Calcium 9.2 POC Ioniz Calcium Chela 1.17 Magnesium 2.1 Total Bilirubin 1.0 AST 16 ALT 15 Alkaline Phosphatase 49 Total Creatine Kinase 201 Troponin I High Sens 15.2 19.0 Total Protein 6.9 Albumin 4.5 Globulin 2.4 L Albumin/Globulin Ratio 1.9 Triglycerides Cholesterol LDL Cholesterol, Calc VLDL Cholesterol, Calc HDL Cholesterol Cholesterol/HDL Ratio Lipase 31 Free T4 0.70 Free T3 3.60 Cortisol AM Sample 06/27/23 07:05 WBC RBC Hgb POC Hgb Hct POC Hct MCV MCH MCHC RDW Std Deviation RDW Coeff of Syed Plt Count MPV Immature Gran % (Auto) Neut % (Auto) Lymph % (Auto) Dixie % (Auto) Eos % (Auto) Baso % (Auto) Neut # (Auto) Lymph # (Auto) Dixie # (Auto) Eos # (Auto) Baso # (Auto) Immature Gran # (Auto) POC Sodium Sodium POC Potassium Potassium POC Chloride Chloride Carbon Dioxide POC Total CO2 Anion Gap POC Anion Gap POC BUN BUN Creatinine POC Creatinine Est Cr Clr Drug Dosing Est GFR ( Amer) Est GFR (Non-Af Amer) BUN/Creatinine Ratio Glucose POC Glucose (other) Estimat Average Glucose 120 Hemoglobin A1c 5.8 H Calcium POC Ioniz Calcium Chela Magnesium Total Bilirubin AST ALT Alkaline Phosphatase Total Creatine Kinase Troponin I High Sens Total Protein Albumin Globulin Albumin/Globulin Ratio Triglycerides 157 H Cholesterol 184 LDL Cholesterol, Calc 119 VLDL Cholesterol, Calc 31 H HDL Cholesterol 34 Cholesterol/HDL Ratio 5.4 H Lipase Free T4 Free T3 Cortisol AM Sample 11.52 Diagnostic Findings Chest CTA was performed at the time of admission. Pulmonary embolus. Some mild atherosclerotic disease. No other acute findings. Echocardiogram performed 06/27/2023: Normal LV systolic function with ejection fraction of 60-65%. No wall motion abnormalities. Mild LVH. Mildly dilated right ventricle. Mildly dilated left atrium. Normal RV systolic pressure PG Care Time/CCT Total # of Minutes Spent Total Time Spent with Patient: Total time spent is greater than 50% in coordination of care (as documented) at patient's floor/unit and/or counseling patient: Coding Level of Care Code 92310 IN/OBS CONSULT LVL 4,60M Diagnoses Chest pressure R07.89 Hypertension I10 Palpitations R00.2
--- NOTE | 2023-06-27 19:39 | Discharge Summary ---
Date of Service June 27, 2023 Admission HPI Per Admitting Provider 57 y/o male with a PMHx of hypothyroidism presents with intermittent chest pressure and palpitations/skipped beats. Patient was seen by PCP 06/25 for the same symptoms. TSH, CBC, CMP, Mg, and Holter monitor were ordered at that time. Labs largely unremarkable. Trops negative x2. EKG without signs of ischemia. CXR without signs of dissection. requesting ECHO and cardiology consult. Patient does carry a diagnosis of hypothyroidism. He is not on levothyroxine anymore and manages with lifestyle modifications and supplements. TSH 3.954. T3/T4 and AM cortisol ordered. Upon my interview patient asymptomatic. Has reported a few skipped beats. Intermittent chest pressure described as "a weighted blanket". Palpitations described as "when a muscle is tight right before it gives and loosens". Patient overall well - no fevers, chills, SOB, nausea, vomiting, diarrhea, constipation, urinary symptoms, hematuria, hematochezia, lightheadedness, or dizziness. Principal Diagnosis Uncontrolled hypertension, palpitations, PVCs, chest pressure Discharge Exam PHYSICAL EXAMINATION Last 24h vital signs reviewed, see documentation in flowsheet General: comfortable appearing, no distress HEENT: Normocephalic, atraumatic, pupils round and equal, sclerae anicteric, no conjunctival injection, moist mucus membranes Lungs: Normal respiratory effort. Clear to auscultation bilaterally. No RRW Heart: Regular rate and rhythm, no murmurs. No JVD. No tenderness of chest wall Abdomen: nondistended. Bowel sounds present. Extremities: Warm, dry, well-perfused. No extremity edema. Neuro: Alert and oriented x 4, face symmetric, moves 4 extremities well Psych: Normal affect and behavior Discharge Data Allergies Allergy/AdvReac Type Severity Reaction Status Date / Time Sulfa (Sulfonamide Allergy Unknown HAPPENED Verified 06/27/23 00:18 Antibiotics) A CHILD omeprazole AdvReac Intermediate HANDS Verified 06/27/23 00:18 SWELLED Consultations 06/27/23 01:28 ED Decision to Admit Stat 06/27/23 04:45 Consult Cardiology Routine Ordered Studies 06/26/23 23:17 CT angio chest PE protocol Stat Chest X-Ray 06/26/23 23:16 SINGLE VIEW CHEST CLINICAL HISTORY: Atypical chest pain FINDINGS: 2 AP, portable, upright chest radiographs are correlated with chest CT dated 11/08/2019. The heart is mildly enlarged. The pulmonary vasculature is noncongested. The lungs and pleural spaces are clear. No pneumothorax is seen. The bony thorax is grossly intact. IMPRESSION: No active disease in the chest. ACT 112: Negative or not required by law. Electronically signed by: Marcus Lr M.D. 06/27/2023 6:55 AM Chest CTA 06/26/23 23:17 Exam(s): CTA CHEST IV Amt: 116 ML OPTIRAY 320 EXAM: CT Angiography Chest With Intravenous Contrast CLINICAL HISTORY: Reason for exam: PE. TECHNIQUE: Axial computed tomographic angiography images of the chest with intravenous contrast. CTDI is 49.51 mGy and DLP is 873.02 mGy-cm. Automated exposure control was utilized for the study. A dose lowering technique was utilized adhering to the principles of ALARA. MIP reconstructed images were created and reviewed. COMPARISON: No relevant prior studies available. FINDINGS: Pulmonary arteries: Adequate pulmonary artery opacification. Normal caliber main pulmonary artery. No pulmonary embolism. Aorta: No acute findings. No aortic aneurysm or dissection. Lungs: Unremarkable. No mass. No consolidation. Pleural space: Unremarkable. No pleural effusion or pneumothorax. Heart: Cardiomegaly. No RV strain. Minor coronary artery atherosclerosis. No pericardial effusion. Thyroid: Unremarkable thyroid gland. Bones/joints: No acute fracture. No dislocation. Soft tissues: Unremarkable. Lymph nodes: Unremarkable. No adenopathy. Gallbladder and bile ducts: Cholecystectomy. IMPRESSION: No evidence of acute pulmonary embolism. Electronically signed by: Tl Devlin M.D. 06/27/23 00:27 AM 06/26/23 22:58 06/26/23 22:58 Hospital Course (1) Chest pressure: 57 y/o man with history of hypertension but no longer on medication after weight loss, admitted for evaluation of chest pressure, palpitations Serial troponin negative, serial EKG reassuring, symptoms of chest heaviness "like a blanket" present for last several days without evidence of ACS CTA chest in ED negative for ED Echo obtained 06/26 is reassuring notable for mild concentric LVH no rwma's and possible mild RV enlargement that could be artifactual per device sales consultant Consulted Dr. Casas - discussed with him. Symptoms and presentation not typical for angina, stress test not recommended at this time since felt to be low risk. Palpitations - monitored on telemetry overnight which I reviewed, he does have intermittent PVCs though not a very high PVC burden. In ED his symptoms were observed to correate with PVC at least some of the time. -has outpatient holter monitor ordered already, though seems low risk that he is having palpitations from a significant arrhythmia Hypertension - was significantly hypertensive in the hospital, though may have been anxiety provoking situation and he reports his BP has trended up recently but not above 150-160s -resumed lisinopril 10 mg, primary care follow up -recommended he monitor with home cuff -counseled on low salt diet Has primary care follow up early July. (2) Palpitations: see chest pressure (3) Hypothyroidism: Was previously on levothyroxine. Self stopped. Managing thyroid with supplementation. TSH 3.9. T3/T4 AM cortisol were checked and were normal (4) Hypertension: Self stopped lisinopril. BP has been elevated on an outpatient basis. -see above, lisinopril resumed (5) Hyperlipidemia: Reordered lipids - LDL 119 defer to primary care whether he would benefit from statin therapy (6) Acid reflux: Managed with diet. PRN Maalox ordered. (7) Impaired fasting glucose: HbA1c 5.8% Total Time Total Time Spent Total Time Spent (In Minutes): I personally spent: 35 minutes today on clinical care activities including: reviewing chart notes and vital signs, telemetry reviewing labs discussion with device sales consultant examining and counseling the patient and family writing orders, discharge instructions documentation Discharge Plan Discharge Items Patient Disposition: Home - Self-Care Reason For Visit: HEART PALPITATIONS Discharge Diagnosis: hypertension, heart palpitations, chest pressure Condition on Discharge: Good Activity: Resume your previous activity Non-emergency contact: Primary Care Provider Call non-emergency contact if: you have any medication questions and your symptoms worsen Follow-up/Referrals: Deloris Alford DO [Primary Care Provider] - 07/15/23 9:20 am Diet: Low Sodium (2gm) Addtl Attending Provider Instructions: You were evaluated for palpitations and chest pressure The palpitations seem to be related to infrequent premature beats (PVCs). These are generally benign. There was no evidence of heart attack and your Echo (heart ultrasound) was reassuring. Your blood pressure was significantly elevated in the hospital -recommend resuming lisinopril. The dose will likely need adjustment in primary care -reduce the salt in your diet - this will help control blood pressure for most people -buy a home BP cuff and keep a log - take this in to your doctor visit. Take your BP the same time every day, after sitting for at minimum 2 minutes (ideally 5) Follow up with primary care for holter monitor and blood pressure Your thyroid tests - TSH, free T3 and free T4 and cortisol level were normal Pending Studies at Discharge: No Stand-Alone Forms: [facility] [place] [employer], Smoking Cessation Medications and DC Order Prescriptions: New lisinopril 10 mg tablet 10 mg PO DAILY Qty: 30 0RF Continued cholecalciferol (vitamin D3) [Vitamin D3] 50 mcg (2,000 unit) Capsule 100 mcg PO DAILY Pituitary Gland Support 1 tab PO DAILY Thyrotropin Support 2 tab PO DAILY Discharge Orders: Discharge Order (Routine); Ordered 06/27/23 Ordered By: Wilma Araujo/Other Patient Handouts: High Blood Pressure Tx Admission Data Admit Date/Time: 06/27/23 02:13 Attending Provider: Wilma Ariza Admit Provider: Dianne Paz Primary Care Provider: Deloris Alford Other Providers: Perry Casas; Denys Clark Other Interventions: Discharge Summary Assessment (RN) Last Done: 06/27/23 15:46 Coding Level of Care Code INP/OBS EV SAME DAY LV 3,85MIN Diagnoses Chest pressure R07.89 Palpitations R00.2 Hypothyroidism E03.9 Hypertension I10 Hyperlipidemia E78.5 Acid reflux K21.9 Impaired fasting glucose R73.01
== END 2023-06-27 16:27 | disposition home or self-care (01) ==
LOC: 2N 22:48 → ED 22:48 → SUATTDRO 06-27 02:13 → 2N 06-27 03:51